=== PATIENT | female | born 1965 | race Caucasian/White ===

== ENCOUNTER → 2017-03-30 | Outpatient (CLI) | payer BC ==
[~2017-03-30] MED LIST: ATOR10TA82 PO; BUSP-8 PO; FLUT0.0529 NAE; LORA-741 PO
== END | disposition home or self-care (01) ==
LOC: C.CPL 09:38
PROVIDERS: ATTEND Orthopaedic Surgery
DX: M19.071 Primary osteoarthritis, right ankle and foot (principal)